=== PATIENT | female | born 1970 | race Caucasian/White ===

== ENCOUNTER 2022-05-31 10:53 | Outpatient (CLI) | payer BC ==
[2022-05-31 12:14] LABS: Hemoglobin 11.5 g/dL (12.0-15.5); Mean Corpuscular HGB CONC 32.1 g/dL (32.0-36.0); Mean Corpuscular Hemoglobin 29.5 pg (27.0-33.0); Mean Corpuscular Volume 91.8 fl (81.6-98.3); Mean Platelet Volume 10.5 fl (7.4-10.4); Platelet Count 304 10x3/uL (150-450); RBC Distribution Width 14.3 % (11.5-14.5); White Blood Cell (WBC) Count 10.1 10x3/uL (3.5-10.5)
[2022-05-31 12:27] LABS: BHCG - Serum Negative (NEGATIVE); Pregs Control Background? CLEAR/WHITE (CLR/WHITE); Pregs Control Bar Appear? YES (CONTROL BAR)
[2022-05-31 12:29] LABS: Anion Gap 14 mmol/L (10-20); BUN (Urea Nitrogen) 7 mg/dL (9.8-20.1); Calc. Creatinine Clearance 0 mL/min (70-130); Calcium 8.7 mg/dL (7.8-10.44); Carbon Dioxide 23 mmol/L (22-29); Chloride 104 mmol/L (98-107); Estimated GFR 103; Glucose 90 mg/dL (70-105); Potassium 3.9 mmol/L (3.5-5.1); Sodium 137 mmol/L (136-145)
== END 2022-05-31 10:54 | disposition home or self-care (01) ==
LOC: CSHLAB 10:53
PROVIDERS: ATTEND Obstetrics & Gynecology
DX: Z01.812 Encounter for preprocedural laboratory examination (principal); Z20.822 Contact with and (suspected) exposure to COVID-19
CPT/HCPCS: 80048; 84703; 85027; 87811

== ENCOUNTER 2022-06-03 05:52 | Day surgery (SDC) | payer BC ==
[2022-06-01 08:26] VITALS: BMI 25.4
[2022-06-03] MEDS ORDERED: Dexamethasone 20 MG/5 ML VIAL SLOW IVP ONE (05:53)
[2022-06-03] MEDS ORDERED: Lidocaine 1% PF 5 ML VIAL SLOW IVP ONE (05:53)
[2022-06-03] MEDS ORDERED: Ketorolac Tromethamine 30 MG/ML VIAL IVP ONE (05:53)
[2022-06-03] MEDS ORDERED: diphenhydrAMINE 50 MG/ML VIAL IVP ONE (05:53)
[2022-06-03] MEDS ORDERED: PROPOFOL 200 MG/20 ML VIAL IV ONE (05:53)
[2022-06-03] MEDS ORDERED: Ondansetron PF 4 MG/2 ML Vial IVP ONE (05:53)
[2022-06-03] MEDS ORDERED: Lidocaine 1% MPF 2 ML VIAL ONE (06:31)
[2022-06-03] MEDS ORDERED: Fentanyl 100 MCG/2 ML VIAL ONE (07:00)
[2022-06-03] MEDS ORDERED: CEFAZOLIN 2 GM VIAL ONE (07:06)
== END 2022-06-03 09:00 | disposition home or self-care (01) ==
LOC: CSHSDC 05:52
PROVIDERS: ATTEND Obstetrics & Gynecology
PROC: 0U5B8ZZ Destruction of Endometrium, Via Natural or Artificial Opening Endoscopic (ICD-10-PCS; principal; 2022-06-03)
PROC: 0UDB8ZZ Extraction of Endometrium, Via Natural or Artificial Opening Endoscopic (ICD-10-PCS; principal; 2022-06-03)
DX: N84.0 Polyp of corpus uteri (principal); N92.0 Excessive and frequent menstruation with regular cycle; N94.6 Dysmenorrhea, unspecified; Z79.899 Other long term (current) drug therapy; Z88.8 Allergy status to other drugs, medicaments and biological substances; Z20.822 Contact with and (suspected) exposure to COVID-19; Z98.890 Other specified postprocedural states
CPT/HCPCS: 88305; J0690; J1100; J1200; J1885; J2405; J2704; J3010